=== PATIENT | female | born 1940 | race Two or more races ===

== ENCOUNTER 2024-06-21 11:43 | Emergency (ER) | payer OTHER ==
[~2024-06-21] VITALS: Ht 154.9 cm; Wt 54.9 kg
[~2024-06-21 11:43] MED LIST: LISINOPRIL20 MG PO
[2024-06-21] MEDS ORDERED: FUROSEMIDE20 MG PO (12:29)
[2024-06-21] MEDS ORDERED: ATORVASTATIN CA10 MG PO (12:29)
[2024-06-21] MEDS ORDERED: METFORMIN HCL1000 M3 PO (12:29)
[2024-06-21] MEDS ORDERED: LISINOPRIL40 MG PO (12:29)
[2024-06-21] MEDS ORDERED: METFORMIN HCL500 M4 PO (12:30)
[2024-06-21] MEDS ORDERED: VERAPAMIL HCL80 MG PO (12:30)
[2024-06-21] MEDS ORDERED: METOPROLOL SUCC50 MG PO (12:30)
[2024-06-21 12:50] VITALS: BP 200/80; O2SAT 100
[2024-06-21] MEDS ORDERED: FAMOtidine 10 MG/ML (4ML VIAL) IV STA (13:11)
[2024-06-21] MEDS ORDERED: FAMOTIDINE/PF 20 MG/2 ML VIAL ONE (13:15)
[2024-06-21 13:58] LABS: HEMATOCRIT 37.5 % (36.0-45.00); HEMOGLOBIN 12.4 g/dL (12.0-15.00); MEAN CELL VOLUME 89.3 fL (80.00-100.00); MEAN CORPUSCULAR HEMOGLOBIN 29.5 pg (27.00-32.0); PLATELET COUNT 170 K/uL (150-450)
[2024-06-21 13:59] LABS: PH,URINE 5.5 (5.0-8.0); URINE APPEARANCE Clear; URINE BILIRRUBIN Negative (NEGATIVE); URINE BLOOD Negative; URINE COLOR Yellow; URINE GLUCOSE Negative (NEGATIVE); URINE KETONE Negative (NEGATIVE); URINE LEUKOCYTE Trace; URINE NITRATE Negative; URINE PROTEIN Trace (NEGATIVE); URINE UROBILINOGEN 0.2 E.U./dl
[2024-06-21 14:02] LABS: URINE BACTERIA 205.6 uL (0.0-1933); URINE EPITHELIAL CELLS 38.6 uL (0.0-38.8); URINE RBC 2.5 uL (0.0-20.8)
[2024-06-21 14:08] LABS: URINE CAST 0.14 uL (0.0-1.40)
[2024-06-21 14:20] LABS: CALCIUM 9.6 mg/dL (8.5-10.1); CREATININE SERUM 1.02 mg/dL (0.55-1.02); GFR 51.63; POTASSIUM 4.4 mEq/L (3.5-5.1)
== END 2024-06-21 15:05 | disposition home or self-care (01) ==
LOC: ER 11:46
PROVIDERS: General Practice
DX: R10.9 Unspecified abdominal pain (principal); R11.10 Vomiting, unspecified; Z20.822 Contact with and (suspected) exposure to COVID-19; I10 Essential (primary) hypertension; E11.9 Type 2 diabetes mellitus without complications; Z79.84 Long term (current) use of oral hypoglycemic drugs
CPT/HCPCS: 36415; 96365; 99282; J3490